=== PATIENT | male | born 1960 | race Two or more races ===

== ENCOUNTER 2025-04-08 15:38 | Emergency (ER) | payer MEDICARE, MEDICAID ==
[~2025-04-08] VITALS: Ht 177.8 cm; Wt 90.0 kg
[2025-04-08 17:06] LABS: Hematocrit 48.3 % (41.0-53.0); Hemoglobin 16.2 g/dL (13.5-17.5); Mean Corpuscular Hemoglobin 28.7 pg (28.0-32.0); Mean Corpuscular Volume 85.8 fL (80.0-100.0); Nucleated Red Blood Cells % 0.1 %
--- NOTE | 2025-04-08 17:13 | ED.PDOC ---
Psychiatric HPI Comments HPI: Poor Historian. 65-year-old male brought in by ambulance for a psychiatric evaluation. Patient called 911 because he states he has been attacked by a large criminal organization that involves some famous people including somebody joão Monique that he went to high school with and Saroj's niece who are both in the [employer] business and exploitation he states. He states that this lady used to work in some type of a news station and was on TV. They said that the criminal activity also involves the car tell. It is a very complex criminal activity against him. They have been attacking him for at least a year with some laser level guns remotely via satellite. He feels he has been losing muscle tissue due to this. It only happens at nighttime where he feels those zaps and laser shocks a.m. that his back. Patient tried to get help from the police but was not successful. He wants the superior and cord to be involved because he has a very famous person. Patient denies any use of drugs or alcohol. Patient denies any past psychiatric illness of schizophrenia or paranoid. He is not on any medications. Patient has been pleasant and cooperative. Patient points to different parts of his body as abnormal findings however on my clinical exam I do not find any abnormalities. Patient states he has a cell phone that belongs to his 2nd cousin whom he is staying with in the last few months. I asked him to use the cell phone to show me those characters he is referring to that are femurs that are plotting this criminal activity against him but he says he has phone BRIAN on unable to find a. He knows the the person's 1st and last name who is behind this. Patient denies any homicidal or suicidal ideations. And obviously he denies any hallucinations. Past Medical History: Obese Past Surgical History: Tailbone cyst removal REVIEW OF SYSTEMS: CONSTITUTIONAL: Denies acute: fever, diaphoresis, chills, generalized weakness. HEAD: Denies acute: headache, photophobia Eyes: Denies acute: Double vision, vision loss, eye pain, eye discharge. EARS: Denies acute: tinnitus, hearing loss, ear discharge, ear pain, THROAT: Denies acute: sore throat, swelling, difficulty swallowing , pain with swallowi ng, change in voice. NECK: Denies acute: neck pain, neck swelling, stiff neck. HEART: Denies acute : chest pain, palpitations, LUNGS: Denies acute: SOB, wheezing, cough, hemoptysis ABDOMEN: Denies acute: abdominal pain, Nausea, Vomiting, diarrhea, melena , hematemesis, hematochezia SKIN: Denies acute: rash, redness, lesions, itchiness. EXTREMITIES: Denies acute: calf pain, numbness, tingling, weakness, denies pain in extremity. Denies acute: Low back pain. Neuro: Denies acute: focal neurological deficit, motor or sensory focal neurological deficit, tremors, seizure like activity, confusion, dizziness, change in mental status, loss of bowel or bladder function, cauda equina like symptoms. : Denies acute: dysuria, hematuria, flank pain, increase in urinary frequency. PSYCH: Denies acute: hallucination, suicidal ideation, homicidal ideation. PHYSICAL EXAM: General: ---no-----acute distress, awake and alert. Head: normocephalic, atraumatic. Neck: supple, trachea is midline, no swelling. Throat: Normal phonation. Eyes:, no erythema, no purulent discharge, no proptosis, no icterus. Heart: regular rate, regular rhythm, no significant murmur appreciated. Lungs: no apparent respiratory distress, Able to speak in full sentences. No wheezing, no rhonchi, no crackles. No stridors Clear to auscultation bilaterally. Abdomen: non tender to palpation, non distended, soft, no guarding, no rebound, + bowel sounds. Neuro: Awake, Alert, oriented to name, self, situation, follows commands GCS=15. Speech is normal. Skin: no petechia, no purpura, no cyanosis, non-pale, not jaundice. Lower extremities: --no - Pitting edema no deformity, no focal swelling, no calf TTP. Makes eye contact. moves all four extremities. Face: no apparent facial droop. Ambulating in the ED independently. ED COURSE: DISCLAIMER: This medical document was created using an electronic medical record system with voice recognition software and computerized dictation system. Although this document has been carefully reviewed, there might still be some phonetic and typographical errors. Occasional wrong-word or "sound-alike" substitutions may have occurred due to the inherent limitations of voice recognition software. These areas are purely typographical due to imperfections of the software programs and do not reflect any compromise in the patient's medical care. Please read the chart carefully and recognize, using context, where these substitutions have occurred. Chief Complaint: Mental Health Time Seen by MD: 16:40 Information Source: Patient Mode of Arrival: EMS Was a procedure done? Was a procedure done?: No Psych Differential Dx Psych. Differential Dx: Anxiety, Bipolar Disorder, Depression, Hopeless, N/A, No symptoms Reported, Panic Disorder, Schizoprenia, Sleepless, Suicidal OD Differential Dx: Delirium, Hallucinations, Schizophrenia, Substance Abuse Intoxication Differential Dx: Personality Disorder X-Ray, Labs, Meds, VS Vital Signs Date Time Temp Pulse Resp B/P (MAP) Pulse Ox O2 Delivery O2 Flow Rate FiO2 04/08/25 15:41 97.9 90 20 146/88 (107) 99 97.9 Lab Test 04/08/25 19:46 04/08/25 17:49 04/08/25 17:06 04/08/25 16:55 Range/Units Troponin I High Sensitivity 19 21 19 </=54 ng/L Urine Color Yellow Yellow Urine Clarity Clear Clear Urine pH 5.0 5.0-9.0 Urine Specific [place] 1.028 1.001-1.035 Urine Protein Negative Negative Urine Ketones Negative Negative Urine Blood Negative Negative /uL Urine Nitrite Negative Negative Urine Bilirubin Negative Negative Urine Urobilinogen Normal Negative mg/dL Urine Leukocyte Esterase 1+ Negative /uL Urine RBC 1 0 - 3 /hpf Urine Microscopic WBC < 1 0-3 /HPF Urine Squamous Epithelial Cells Few <5 /hpf Urine Bacteria None seen None Seen /hpf Urine Hyaline Casts Few 0 - 2 /lpf Urine Mucus Few None Seen Urine Glucose 1+ H Normal mg/dL Urine Opiates Screen Neg NEGATIVE Urine Fentanyl Screen Neg NEGATIVE Urine Barbiturates Screen Neg NEGATIVE Urine Phencyclidine Screen Neg NEGATIVE Urine Amphetamines Screen Pos NEGATIVE Urine Benzodiazepines Screen Neg NEGATIVE Urine Cocaine Screen Neg NEGATIVE Urine Cannabinoids Screen Pos NEGATIVE White Blood Count 5.4 4.4-10.8 10^3/uL Red Blood Count 5.63 4.5-5.90 10^6/uL Hemoglobin 16.2 13.5-17.5 g/dL Hematocrit 48.3 41.0-53.0 % Mean Corpuscular Volume 85.8 80.0-100.0 fL Mean Corpuscular Hemoglobin 28.7 28.0-32.0 pg Mean Corpuscular Hemoglobin Concent 33.5 32.0-36.0 g/dL Red Cell Distribution Width 14.9 H 11.8-14.3 % Platelet Count 275 140-450 10^3/uL Mean Platelet Volume 8.3 6.9-10.8 fL Neutrophils (%) (Auto) 68.6 37.0-80.0 % Lymphocytes (%) (Auto) 23.0 10.0-50.0 % Monocytes (%) (Auto) 7.0 0.0-12.0 % Eosinophils (%) (Auto) 1.2 0.0-7.0 % Basophils (%) (Auto) 0.2 0.0-2.0 % Neutrophils # (Auto) 3.7 1.6-8.6 10 ^3/uL Lymphocytes # (Auto) 1.2 0.4-5.4 10 ^3/uL Monocytes # (Auto) 0.4 0-1.3 10 ^3/uL Eosinophils # (Auto) 0.1 0-0.8 10 ^3/uL Basophils # (Auto) 0 0-0.2 10 ^3/uL Nucleated Red Blood Cells 0.1 % Sodium Level 136 136-145 mmol/L Potassium Level 4.9 3.5-5.1 mmol/L Chloride Level 102 98-107 mmol/L Carbon Dioxide Level 28 20-31 mmol/L Anion Gap 6 5-15 Blood Urea Nitrogen 18 9-23 mg/dL Creatinine 1.20 0.700-1.30 mg/dL Glomerular Filtration Rate Calc 66 >90 mL/min BUN/Creatinine Ratio 15.0 10.0-20.0 Serum Glucose 155 H 74-106 mg/dL Calcium Level 9.9 8.7-10.4 mg/dL Total Bilirubin 1.4 H 0.2-1.0 mg/dL Aspartate Amino Transferase (AST) 21 13-40 U/L Alanine Aminotransferase (ALT) 25 7-40 U/L Alkaline Phosphatase 70 46-116 U/L Creatine Kinase 120 46-171 U/L Total Protein 7.1 5.7-8.2 g/dL Albumin 4.4 3.2-4.8 g/dL Time of 1ST Reevaluation: 19:42 (Patient has been medically cleared. Patient is awaiting psych evaluation) Reevaluation 1ST: Unchanged Time of 2ND Reevaluation: 21:58 (Tele psych evaluated the patient. Please see their consultation recommendations. The doctor requested to keep the patient olanzapine 7.5 mg b.i.d. 1st dose now. He diagnosed the patient with paranoid delusions and recommends to transfer the patient's psychiatric facility voluntarily but if the patient decides to leave to reconsult Psychiatry again and they will place the patient on a hold at that time for gravely disabled.) Patient Education/Counseling: Diagnosis, Treatment Family Education/Counseling: No Family Present Assigned to Dr. Dr. Hankins [id number] physician. Patient has been medically cleared. Patient has been seen by tele psych. Please see their consultation recommendation notes. Patient is awaiting psychiatric facility to be transferred to voluntarily. Patient is not to leave. If patient wants to leave please reconsult Psychiatry again and they will place him on an involuntary hold. Psychiatrist also said that if we are unable to find a bed for voluntary hold to contact him again and he will place the patient on a hold for gravely disable to expedite the process. Departure 1 Departure Time of Disposition: 19:42 Impression: Primary Impression: Patient needs psychiatric hold for evaluation Additional Impression: Methamphetamine abuse Disposition: 30 STILL A PATIENT Condition: Stable Discharged With: Self Critical Care Note Critical Care Time?: No Heart Score Heart Score: Heart Score Response (Comments) Value History N/A 0 EKG N/A 0 Age N/A 0 Risk Factors N/A 0 Troponin N/A 0 Total 0 MONIE CAGLE DO Apr 08, 2025 17:13
[2025-04-08 17:29] LABS: Alanine Aminotransferase 25 U/L (7-40); Albumin 4.4 g/dL (3.2-4.8); Alkaline Phosphatase 70 U/L (46-116); Anion Gap 6 (5-15); BUN/Creatinine Ratio 15.0 (10.0-20.0); Blood Urea Nitrogen 18 mg/dL (9-23); Calcium 9.9 mg/dL (8.7-10.4); Carbon Dioxide 28 mmol/L (20-31); Chloride 102 mmol/L (98-107); Creatine Kinase IFCC 120 U/L (46-171); Potassium 4.9 mmol/L (3.5-5.1); Sodium 136 mmol/L (136-145); Total Protein 7.1 g/dL (5.7-8.2)
[2025-04-08 17:30] LABS: Bilirubin, Total 1.4 mg/dL (0.2-1.0); Glucose 155 mg/dL (74-106)
[2025-04-08 18:32] LABS: Urine Protein, UAD Negative (Negative)
[2025-04-08 18:44] LABS: Barbiturate Scree,Urine Neg (NEGATIVE); Cannabinoid Screen, Urine Pos (NEGATIVE); Opiate Scree,Urine Neg (NEGATIVE); Phencyclidine Screen, Urine Neg (NEGATIVE)
[2025-04-08 18:45] LABS: Amphetamine Screen, Urine Pos (NEGATIVE); Benzodiazephine Screen, Urine Neg (NEGATIVE); Cocaine Screen, Urine Neg (NEGATIVE)
[2025-04-08] MEDS: SODIUM CHLORIDE 0.9% 1,000 ML IV ONE (20:50)
--- NOTE | 2025-04-08 21:34 | DVHINCON2 ---
Date of Service if different f: Apr 08, 2025 Time of Service: 21:06 Consult Consult Note PSYCHIATRY ED NEW CONSULT HPI: 65 yo pt with unclear PPH and ?meth use disorder presents to ED BIBA for safety, psychiatric stabilization, and possible med initiation/optimization in setting of acute psychotic symptoms. Psychiatry consulted for safety evaluation and recommendations in context of current presentation Pt reports "its not my imagination, i am being attacked by a large criminal organization, [employer], and the government is involved and they are trying to murder me and I was recently electrocuted by laser guns and my body is falling apart and losing my skin and tissue and this has been going on for decades and i recently called the police but they did nothing to help me" Pt p/w moderate thought disorder, confusion, disorganized TP, paranoia, impaired reality testing, somatic delusions, poor sleep, anxiety, possible decline in self care. Pt poor historian with limited insight Denies depressed mood, hopelessness, helplessness, isolation, negative thoughts, or anhedonia. Adamantly denies SI/HI. Denies acute psychosocial stressors Does not have active outpt MH services established at this time. Currently not on any psychotropic agents, no prior psych med trials Denies ETOH, THC or IDU prior to admission although UDS + for meth/thc, states he resides with his cousin who uses meth/thc Single, no children, unemployed/ssi, lives with cousin some support system noted (immediate family) Unknown trauma hx. Denies FH of psych hospitalizations, suicide attempts, or completed suicides No acute medical/chronic pain issues, hx of seizures/TBI, or recent head injuries, NKDA Denies hx of SI/SIB/SA/PSG although has several remote prior psych hospitalizations for unclear reasons. Denies history of violence, aggression, or assaultive behaviors. Denies any legal problems. Does not have access to firearms MSE: General Appearance/Behavior: Alert/awake; appears stated age, slightly overweight, fair grooming/hygiene; calm/polite and cooperative, fair eye contact, no PMA/PMR Speech: coherent, rrr Thought Process: tangential, delusional, loose, disorganized Thought Content: Abnormal Thoughts/Perceptions: denies dissociative symptoms Homicidality / Violent Thoughts: adamantly denies HI Suicidality: adamantly denies SI Hallucinations: denies AVTH Delusions: +paranoia, persecutory, somatic delusions Obsessions /compulsions: None Judgment/Insight: marginal to questionable/limited Mood & Affect: "nervous" with mood-congruent, somewhat paranoid/appropriate Orientation: oriented x 3 Attention/Concentration: appears intact Cognition: grossly intact Assessment: 65 yo pt with unclear PPH and ?meth use disorder presents to ED BIBA for safety, psychiatric stabilization, and possible med initiation/optimization in setting of acute psychotic symptoms Pt p/w moderate thought disorder, confusion, disorganized TP, paranoia, impaired reality testing, somatic delusions, poor sleep, anxiety, possible decline in self care. Pt poor historian with limited insight Denies ETOH, THC or IDU prior to admission although UDS + for meth/thc, states he resides with his cousin who uses meth/thc Pt medically cleared in ED Pt is appropriate for inpatient psychiatric admission for further safety, psychiatric stabilization, and possible medication initiation/optimization. Pt willing to transfer to inpt psych facility voluntarily. Consider 5150 hold for G D ONLY if needed for transfer or if no voluntary beds are available Primary Diagnosis: Psychotic disorder unspecified. Delusional disorder. R/o meth use disorder. R/o THC use d/o. R/o SIPD Recommend VOL transfer to inpt psych facility for higher level of care 1:1 sitter is recommended Maintain elopement precautions Recommend starting Olanzapine 7.5 mg bid - first dose now Risks/benefits/alternative treatments discussed, informed consent provided by pt If patient later refuses voluntary hospitalization/ requests to be discharged from ED prior to transfer, please reconsult telepsych services for reassessment to evaluate for 5150 hold. Pt verbalized understanding and is receptive to above tx plan This case was discussed with ED nurse/provider and all parties in agreement with above tx plan Jeremiah Ramon MD Plan discussed with: Patient JEREMIAH RAMON MD Apr 08, 2025 21:34
[2025-04-08 22:00] VITALS: PULSE 76; RESP 18; O2SAT 99
[2025-04-08] MEDS: OLANZapine 5 MG TAB PO ONE (23:13)
[2025-04-09 13:00] VITALS: BP 148/102; PULSE 86; RESP 18; TEMP 98.1; O2SAT 99
--- NOTE | 2025-04-09 13:41 | DVHINCON2 ---
Date of Service if different f: Apr 09, 2025 Consultation ([facility]) Progress: Somewhat better Labs Laboratory Tests Test 04/08/25 16:55 04/08/25 17:06 04/08/25 19:46 White Blood Count 5.4 10^3/uL (4.4-10.8) Red Blood Count 5.63 10^6/uL (4.5-5.90) Hemoglobin 16.2 g/dL (13.5-17.5) Hematocrit 48.3 % (41.0-53.0) Mean Corpuscular Volume 85.8 fL (80.0-100.0) Mean Corpuscular Hemoglobin 28.7 pg (28.0-32.0) Mean Corpuscular Hemoglobin Concent 33.5 g/dL (32.0-36.0) Red Cell Distribution Width 14.9 % (11.8-14.3) Platelet Count 275 10^3/uL (140-450) Mean Platelet Volume 8.3 fL (6.9-10.8) Neutrophils (%) (Auto) 68.6 % (37.0-80.0) Lymphocytes (%) (Auto) 23.0 % (10.0-50.0) Monocytes (%) (Auto) 7.0 % (0.0-12.0) Eosinophils (%) (Auto) 1.2 % (0.0-7.0) Basophils (%) (Auto) 0.2 % (0.0-2.0) Neutrophils # (Auto) 3.7 10 ^3/uL (1.6-8.6) Lymphocytes # (Auto) 1.2 10 ^3/uL (0.4-5.4) Monocytes # (Auto) 0.4 10 ^3/uL (0-1.3) Eosinophils # (Auto) 0.1 10 ^3/uL (0-0.8) Basophils # (Auto) 0 10 ^3/uL (0-0.2) Nucleated Red Blood Cells 0.1 % Sodium Level 136 mmol/L (136-145) Potassium Level 4.9 mmol/L (3.5-5.1) Chloride Level 102 mmol/L (98-107) Carbon Dioxide Level 28 mmol/L (20-31) Anion Gap 6 (5-15) Blood Urea Nitrogen 18 mg/dL (9-23) Creatinine 1.20 mg/dL (0.700-1.30) Glomerular Filtration Rate Calc 66 mL/min (>90) BUN/Creatinine Ratio 15.0 (10.0-20.0) Serum Glucose 155 mg/dL (74-106) Calcium Level 9.9 mg/dL (8.7-10.4) Total Bilirubin 1.4 mg/dL (0.2-1.0) Aspartate Amino Transf (AST/SGOT) 21 U/L (13-40) Alanine Aminotransferase (ALT/SGPT) 25 U/L (7-40) Alkaline Phosphatase 70 U/L (46-116) Creatine Kinase 120 U/L (46-171) Total Protein 7.1 g/dL (5.7-8.2) Albumin 4.4 g/dL (3.2-4.8) Urine Color Yellow (Yellow) Urine Clarity Clear (Clear) Urine pH 5.0 (5.0-9.0) Urine Specific [place] 1.028 (1.001-1.035) Urine Protein Negative (Negative) Urine Ketones Negative (Negative) Urine Blood Negative /uL (Negative) Urine Nitrite Negative (Negative) Urine Bilirubin Negative (Negative) Urine Urobilinogen Normal mg/dL (Negative) Urine Leukocyte Esterase 1+ /uL (Negative) Urine RBC 1 /hpf (0 - 3) Urine Microscopic WBC < 1 /HPF (0-3) Urine Squamous Epithelial Cells Few /hpf (<5) Urine Bacteria None seen /hpf (None Seen) Urine Hyaline Casts Few /lpf (0 - 2) Urine Mucus Few (None Seen) Urine Glucose 1+ mg/dL (Normal) Urine Opiates Screen Neg (NEGATIVE) Urine Fentanyl Screen Neg (NEGATIVE) Urine Barbiturates Screen Neg (NEGATIVE) Urine Phencyclidine Screen Neg (NEGATIVE) Urine Amphetamines Screen Pos (NEGATIVE) Urine Benzodiazepines Screen Neg (NEGATIVE) Urine Cocaine Screen Neg (NEGATIVE) Urine Cannabinoids Screen Pos (NEGATIVE) Troponin I High Sensitivity 19 ng/L (</=54) Appetite: Fair Side effects of medications: No Appearance: Stated age Psychomotor activity: Restless Behavioral: Cooperative Eye contact: Intense Speech: Pressured, Rapid Affect: Mood Congruent, Blunted Mood: Anxious, Elevated Thought processes: Flight of ideas Thought content: Paranoid, Delusions Suicidal ideations: Absent Homicidal ideations: Absent Orientation: Person, Place Memory intact: Recent Intellect: Average Abstractability: [place] Concentration: Limited Attention: Limited Judgement: Poor Insight: Poor Vitals Vital Signs Date Time Temp Pulse Resp B/P (MAP) Pulse Ox O2 Delivery O2 Flow Rate FiO2 04/08/25 22:00 76 18 99 Room Air* 0 21 21 04/08/25 22:00 98.0 143/89 (107) 98.0 Treatment plan discussed: With staff Medication adjusted: Yes Labs ordered: No Psychotherapy provided: No Type: Voluntary Diagnosis: F29 Plan : The pt was evaluated by Dr. Ramon last night after he presented for psychosis and seeking psychiatric treatment. Pt initially agreed to go inpatient voluntarily but this morning he changed his mind and wants to go home without going to the hospital. Pt is still quite psychotic, hyperverbal, loosening of associations, reduced sleep, increased activation, somatic pre-occupations and delusions. Pt does not appear to be able to function in the community in his state and will need to be involuntarily hospitalized to psychiatric floor for stabilization. Recommend initiating 5150. Please stop Zyprexa. Please start Risperdal 1 mg PO BID + Cogentin 0.5 mg BID. Reconsult as needed. History of Present Illness Reason for Consult : My cousin is close to the [employer]. HPI : Pt was evaluated for psychosis yesterday by Dr. Ramon who recommended voluntary inpatient admission. Pt said he wants to leave today. He presented with delusions of there being a contract on his life by the [employer] and the [employer] and they are hitting him with lasers, making his body have all sorts of breakdowns. Today, pt talked at length about his cousin with whom he was living and saying that he was liaises with the [employer] and this person is involved in stealing his identity and other conspiracies. Pt says that he hasn't been sleeping much, has used some cannabis wax, but meth is in the air that he breathes b/c the cousin is a meth user. Pt says the [employer] system is using lasers that are injuring his body, there is a cut in his jaw and no one will do an x-ray. It is difficult to interrupt the pt as he keeps talking and jumping from one topic to the other with loose asso ciations. Past Psychiatric History : Denies. Past Medical History : Denies. Social History : Was living with the cousin. Pt said that in the past his mother was sick and disrobed herself in public once when she was unwell. Assessment/Diagnosis/Plan Reviewed: Consults, Care Plan, Labs, Medications ROSA SUE MD Apr 09, 2025 13:41
== END 2025-04-09 15:22 | disposition left against medical advice (07) ==
LOC: EDBD 15:38 → ER 15:38
DX: F15.10 Other stimulant abuse, uncomplicated (principal); F41.9 Anxiety disorder, unspecified; F22 Delusional disorders; E66.9 Obesity, unspecified; Z79.899 Other long term (current) drug therapy; Z68.28 Body mass index [BMI] 28.0-28.9, adult
CPT/HCPCS: 36415; 80053; 80307; 81001; 82550; 84484; 85025